=== PATIENT | female | born 1980 | race Caucasian/White ===

== ENCOUNTER 2018-07-31 14:28 | Emergency (ER) | payer MEDICAID ==
[2018-07-31] MEDS: predniSONE 20 MG TAB PO (15:05)
[2018-07-31] MEDS: TOBRAMYCIN/DEXAMETH 2.5 ML OPH RIGHT EYE (15:14)
== END 2018-07-31 15:44 | disposition home or self-care (01) ==
LOC: FTE 14:28
DX: H10.9 Unspecified conjunctivitis (principal)
CPT/HCPCS: 99283; J7512

== ENCOUNTER 2019-02-17 15:06 | Emergency (ER) | payer MEDICAID ==
[2019-02-17] MEDS: ACETAMINOPHEN 325 MG TAB PO (15:46)
[2019-02-17] MEDS: CIPROFLOXACIN HCL OTIC DROP 0.25 ML LEFT EAR (15:47)
== END 2019-02-17 16:01 | disposition home or self-care (01) ==
LOC: FTE 15:06
DX: H60.312 Diffuse otitis externa, left ear (principal)
CPT/HCPCS: 99283; Z7502

== ENCOUNTER 2019-02-18 18:28 | Emergency (ER) | payer MEDICAID | END 2019-02-18 20:13 | disposition home or self-care (01) | LOC: FTE 18:28 | DX: H93.92 Unspecified disorder of left ear (principal) | CPT/HCPCS: 99283; Z7502 ==